=== PATIENT | female | born 1995 | race Caucasian/White ===

== ENCOUNTER 2018-06-20 10:19 | Emergency (ER) | payer SELFPAY ==
--- NOTE | 2018-06-20 10:46 | ED ---
Psychiatric Complaint - HPI Summary HPI Summary: This pt is a 22 y/o female, accompanied by her therapist, presenting to [facility] for SI thoughts and plan. Pt states "I feel like I'm losing it and I didn't want to be home alone because I was afraid of hurting myself, not kill myself." Denies SI plan. Pt notes her SI thoughts for a couple of weeks now but "it really really hit" her today. Recent stressor of break up from her significant other. She states she has thoughts about cutting herself, but has been too afraid as veins and blood "freak her out." Additionally she reports sleep disturbance, weight loss (about 20 lbs since the summer). Pt notes she just stopped taking Cymbalta, her last dose was on 06/14, with help from her psychiatrist Dr. Dora Anderson. Pt reports nicotine, marijuana, and alcohol use. PMHx includes depression, dysthymia, mood disorder, bulimia. - History Of Current Complaint Chief Complaint: EDMentalHealth Time Seen by Provider: 06/20/18 10:38 Hx Obtained From: Patient Onset/Duration: Lasting Days, Still Present, Worse Since - today Timing: Days Severity Currently: Moderate Character: Depressed Aggravating Factor(s): Recent Stress Alleviating Factor(s): Nothing Associated Signs And Symptoms: Positive: Sleep Disturbance Has Suicidal: Reports: Thoughts. Denies: With A Plan Has Homicidal: Denies: Thoughts, With A Plan Recent Stressor(s): recent breakup with significant other - Allergies/Home Medications Allergies/Adverse Reactions: Allergies Allergy/AdvReac Type Severity Reaction Status Date / Time cat dander Allergy Swelling Verified 06/20/18 10:32 Of Face,Lips,& Throat kiwi Allergy Swelling Verified 06/20/18 10:32 Of Face,Lips,& Throat Home Medications: Home Medications Guanfacine ER * [Guanfacine HCl ER] 2 mg PO 199906/20/18 [History Confirmed ] Lisdexamfetamine(NF) [Vyvanse(NF)] 40 mg PO [facility] 06/20/18 [History Confirmed ] lamoTRIgine TAB(*) [LaMICtal TAB(*)] 50 mg PO 199906/20/18 [History Confirmed 06/20/18] PMH/Surg Hx/FS Hx/Imm Hx Endocrine/Hematology History: Denies: Hx Bone Marrow Disease, Hx Diabetes Psychiatric History: Reports: Hx Eating Disorder - Bulimia, Hx Depression - Dysthymia, Other Psychiatric Issues/Disorders - mood disorder Infectious Disease History: No Infectious Disease History: Denies: Traveled Outside the [place] in Last 30 Days - Family History Family History: Father: mood disorder - Social History Alcohol Use: Occasionally Substance Use Type: Reports: Marijuana Smoking Status (MU): Light Every Day Tobacco Smoker Review of Systems Constitutional: Other - weight loss Negative: Fever, Chills Cardiovascular: Negative Respiratory: Negative Gastrointestinal: Negative Genitourinary: Negative Psychological: Other - SI thoughts Positive: Depressed. Negative: Other - SI plan, HI thoughts/plan All Other Systems Reviewed And Are Negative: Yes Physical Exam - Summary Physical Exam Summary: VITAL SIGNS: Reviewed. GENERAL: Patient is a well-developed and nourished female. Patient is not in any acute respiratory distress. HEAD AND FACE: No signs of trauma. No ecchymosis, hematomas or skull depressions. No sinus tenderness. EYES: PERRLA, EOMI x 2, No injected conjunctiva, no nystagmus. EARS: Hearing grossly intact. Ear canals and tympanic membranes are within normal limits. MOUTH: Oropharynx within normal limits. NECK: Supple, trachea is midline, no adenopathy, no JVD, no carotid bruit, no c- spine tenderness, neck with full ROM. CHEST: Symmetric, no tenderness at palpation LUNGS: Clear to auscultation bilaterally. No wheezing or crackles. CVS: Regular rate and rhythm, S1 and S2 present, no murmurs or gallops appreciated. ABDOMEN: Soft, non-tender. No signs of distention. No rebound, no guarding, and no masses palpated. Bowel sounds are normal. EXTREMITIES: FROM in all major joints, no edema, no cyanosis or clubbing. NEURO: Alert and oriented x 3. No acute neurological deficits. Speech is normal and follows commands. SKIN: Dry and warm Psych: Pt seems sad Triage Information Reviewed: Yes Vital Signs On Initial Exam: Initial Vitals Temp Pulse Resp BP Pulse Ox 98.7 F 83 16 131/72 100 06/20/18 10:06/20/18 10:06/20/18 10:06/20/18 10:06/20/18 10:25 Vital Signs Reviewed: Yes Diagnostics - Vital Signs Vital Signs Temp Pulse Resp BP Pulse Ox 06/20/18 10:25 98.7 F 83 16 131/72 100 - Laboratory Result Diagrams: 06/20/18 11:00 06/20/18 11:00 Lab Statement: Any lab studies that have been ordered have been reviewed, and results considered in the medical decision making process. Re-Evaluation - Re-Evaluation First Eval Re-Evaluation Time: 12:12 Comment: Pt is medically cleared. Course/Dx - Course Assessment/Plan: Blood work w/o a significant abnormality. She is medically cleared. She is awaiting for a MHE. Patient is hemodynamically stable and A+O x 3. Pt had a mental health evaluation and her case was reviewed by Dr. Xiong, psychiatrist. Per Dr. Xiong pt will be discharged home with a diagnosis of depression and outpatient follow up with her therapist. - Differential Dx/Clinical Impression Provider Diagnosis: Depression Discharge - Sign-Out/Discharge Documenting (check all that apply): Patient Departure - Discharge - Discharge Plan Condition: Stable Disposition: HOME Patient Education Materials: Depression (ED) Referrals: [facility] [Z.BUSINESS, APPLICATION, OTHER] - - Billing Disposition and Condition Condition: STABLE Disposition: Home - Attestation Statements Document Initiated by Deuceibe: Yes Documenting Scribe: Susie Andujar Provider For Whom Dominic is Documenting (Include Credential): Panchito Mendez MD Scribe Attestation: Susie Church scribed for Panchito Mendez MD on 06/22/18 at 0745. Scribe Documentation Reviewed: Yes Provider Attestation: The documentation as recorded by the Susie tolentino accurately reflects the service I personally performed and the decisions made by me, Panchito Mendez MD
[2018-06-20 11:12] LABS: ABS Basophils 0 10^3/ul (0-0.2); ABS Eosinophils 0.1 10^3/ul (0-0.6); ABS Lymphocytes 1.2 10^3/ul (1.0-4.8); ABS Monocytes 0.7 10^3/ul (0-0.8); ABS Neutrophils 7.5 10^3/ul (1.5-7.7); ABS Nucleated RBC 0 10^3/ul; Eosinophil % 0.6 % (0-6); Hematocrit 41 % (35-47); Hemoglobin 14.1 g/dl (12.0-16.0); Lymphocyte % 13.1 % (25-47); Mean Corpuscular HGB Conc 34 g/dl (31-36); Mean Corpuscular Hemoglobin 33 pg (27-31); Mean Corpuscular Volume 95 fL (80-97); Mean Platelet Volume 8.4 um3 (7.4-10.4); Nucleated Red Blood Cells % 0; Platelet Count 248 10^3/ul (150-450); Red Blood Count 4.32 10^6/ul (4.00-5.40); Red Cell Distribution Width 12 % (10.5-15); White Blood Count 9.5 10^3/ul (3.5-10.8)
[2018-06-20 11:27] LABS: Urine Appearance Cloudy; Urine Blood 2+ (Negative); Urine Color Yellow; Urine Ketones Negative (Negative); Urine Protein Negative (Negative); Urine Red Blood Cell 1+(3-5/hpf) (Absent); Urine Specific Gravity 1.009 (1.010-1.030); Urine Urobilinogen Negative (Negative); Urine White Blood Cell Trace(0-5/hpf) (Absent)
[2018-06-20 16:51] VITALS: BP 108/70
== END 2018-06-20 16:49 | disposition home or self-care (01) ==
LOC: ED 10:19
DX: F32.9 Major depressive disorder, single episode, unspecified (principal); F17.210 Nicotine dependence, cigarettes, uncomplicated
CPT/HCPCS: 36415; 80053; 80307; 80320; 80329; 81003; 81015; 84443; 85025; 87086; 99285; G0480